=== PATIENT | female | born 1990 | race Caucasian/White ===

== ENCOUNTER 2017-04-09 10:38 | Inpatient (IN) | payer OTHER ==
[2017-04-09] MEDS ORDERED: SODIUM CHLORIDE 0.9% 50 ML 25 ML IV PRN (11:14)
[2017-04-09] MEDS ORDERED: AMPICILLIN 1 GM PDS 2 GM in SODIUM CHLORIDE 0.9% 100 ML 100 ML IV SCH (11:15)
[2017-04-09] MEDS ORDERED: MEPIVACAINE HCL 1% MPF 30 ML SOL INFIL PRN (11:22)
[2017-04-09] MEDS ORDERED: METHYLERGONOVINE MALEATE 0.2 MG/ML SOL IM PRN (11:22)
[2017-04-09] MEDS ORDERED: CARBOPROST 250 MCG/ML SOL IM PRN (11:22)
[2017-04-09] MEDS ORDERED: OXYTOCIN 10000 MU/ML SOL IM PRN (11:22)
[2017-04-09] MEDS ORDERED: FENTANYL 100MCG/2ML SOL IV PRN (11:22)
[2017-04-09] MEDS ORDERED: LACTATED RINGERS 1,000 ML IV PRN (11:22)
[2017-04-09] MEDS ORDERED: SODIUM CHLORIDE 0.9% FLUSH 10 ML SOL IV PRN (11:22)
[2017-04-09 11:55] LABS: BASOPHILS % (AUTO) 1 % (0-3); EOSINOPHILS % (AUTO) 4 % (0-9); HEMATOCRIT 35 % (35-47); MEAN CORPUSCULAR HGB CONC 33.4 gm/dl (32.0-36.0); MEAN CORPUSCULAR VOLUME 85 fL (81-99); MONOCYTES % (AUTO) 9.5 % (0-12); NEUTROPHILS % (AUTO) 72.7 % (37-80)
[2017-04-09] MEDS ORDERED: AMPICILLIN/SULBACTAM 3 GM PDS ONE ×2 (12:11→12:12)
[2017-04-09] MEDS ORDERED: AMPICILLIN 1 GM PDS ONE ×5 (12:13→23:15)
[2017-04-09] MEDS: SODIUM CHLORIDE 0.9% FLUSH 10 ML SOL IV SCH ×2 (12:24→19:53)
[2017-04-09] MEDS ORDERED: NALBUPHINE HCL 20 MG/ML SOL IV PRN ×2 (15:58→16:27)
[2017-04-09] MEDS ORDERED: NALOXONE HYDROCHLORIDE 0.4 MG/ML SOL IV PRN ×2 (15:58→16:27)
[2017-04-09] MEDS ORDERED: EPHEDRINE SULFATE 50 MG/ML SOL IV PRN ×2 (15:58→16:27)
[2017-04-09] MEDS ORDERED: DIPHENHYDRAMINE 50 MG/ML SOL IV PRN ×2 (15:58→16:27)
[2017-04-09] MEDS ORDERED: LACTATED RINGERS 1,000 ML IV SCH ×2 (16:00)
[2017-04-09] MEDS: AMPICILLIN 1 GM PDS 1 GM in SODIUM CHLORIDE 0.9% 100 ML 100 ML IV SCH ×3 (16:24→23:20)
[2017-04-09] MEDS ORDERED: ROPIVACAINE HYDROCHLORIDE 5 MG/ML SOL ONE (16:26)
[2017-04-09] MEDS ORDERED: FENTANYL 250 MCG/ 5ML SOL ONE (16:26)
[2017-04-09] MEDS ORDERED: LIDOCAINE HCL 2% MPF SOL ONE (16:26)
[2017-04-09] MEDS: LACTATED RINGERS 1,000 ML IV SCH ×3 (16:30→17:41)
[2017-04-09 23:24] LABS: BASOPHILS % (AUTO) 1 % (0-3); EOSINOPHILS % (AUTO) 1 % (0-9); HEMATOCRIT 34 % (35-47); MEAN CORPUSCULAR HGB CONC 34.7 gm/dl (32.0-36.0); MEAN CORPUSCULAR VOLUME 85 fL (81-99); MONOCYTES % (AUTO) 8.1 % (0-12); NEUTROPHILS % (AUTO) 83.6 % (37-80)
[2017-04-09] MEDS ORDERED: SODIUM CHLORIDE 0.9% 500 ML 500 ML IV ONE (23:30)
[2017-04-09 23:31] LABS: CALCIUM 8.3 mg/dl (8.5-10.1); POTASSIUM 3.8 mMol/L (3.5-5.1)
[2017-04-09] MEDS ORDERED: GENTAMICIN SULFATE 40 MG/ML SOL ONE (23:49)
[2017-04-10] MEDS: SODIUM CHLORIDE 0.9% IV SCH ×2
[2017-04-10] MEDS: GENTAMICIN SULFATE IV SCH ×2
[2017-04-10] MEDS ORDERED: BISACODYL 10 MG SUP PR PRN (01:57)
[2017-04-10] MEDS ORDERED: FLEET ENEMA PR PRN (01:57)
[2017-04-10] MEDS ORDERED: WITCH HAZEL 1 EA PAD TOP PRN (01:57)
[2017-04-10] MEDS ORDERED: METHYLERGONOVINE MALEATE 0.2 MG TAB PO PRN (01:57)
[2017-04-10] MEDS ORDERED: BENZOCAINE/MENTHOL 1 SPR TOP PRN (01:57)
[2017-04-10] MEDS: LACTATED RINGERS 1,000 ML IV SCH (02:24)
[2017-04-10] MEDS ORDERED: AMPICILLIN 1 GM PDS ONE (03:18)
[2017-04-10] MEDS: AMPICILLIN 1 GM PDS 1 GM in SODIUM CHLORIDE 0.9% 100 ML 100 ML IV SCH (03:25)
[2017-04-10] MEDS: SODIUM CHLORIDE 0.9% FLUSH 10 ML SOL IV SCH ×3 (03:37→21:53)
[2017-04-10] MEDS: IBUPROFEN 600 MG TAB PO PRN ×2 (04:01→11:31)
[2017-04-10] MEDS: APAP/HYDROCODONE 325/5 TAB PO PRN ×5 (04:01→21:52)
[2017-04-10] MEDS: DOCUSATE SODIUM 100 MG SGL PO SCH ×2 (08:37→21:52)
[2017-04-10] MEDS ORDERED: SODIUM CHLORIDE 0.9% IV SCH ×3 (09:00→22:00)
[2017-04-10] MEDS ORDERED: GENTAMICIN SULFATE IV SCH ×3 (09:00→22:00)
[2017-04-10] MEDS ORDERED: GENTAMICIN SULFATE 40 MG/ML SOL ONE ×2 (20:11→20:12)
[2017-04-10] MEDS ORDERED: SERTRALINE HYDROCHLORIDE 50 MG TAB ONE (20:13)
[2017-04-10] MEDS: SERTRALINE HYDROCHLORIDE 50 MG TAB PO SCH (21:53)
[2017-04-11] MEDS: APAP/HYDROCODONE 325/5 TAB PO PRN ×5 (02:27→22:48)
[2017-04-11] MEDS: SODIUM CHLORIDE 0.9% FLUSH 10 ML SOL IV SCH ×2 (02:34→12:40)
[2017-04-11] MEDS: IBUPROFEN 600 MG TAB PO PRN ×3 (06:25→18:56)
[2017-04-11] MEDS: DOCUSATE SODIUM 100 MG SGL PO SCH ×2 (08:38→21:37)
[2017-04-11] MEDS: MULTIVITAMIN2 1 EA TAB PO SCH (08:38)
[2017-04-11] MEDS: FOLIC ACID 1 MG TAB PO SCH (08:38)
[2017-04-11] MEDS ORDERED: TEMAZEPAM 15MG 15 MG CAP ONE (21:33)
[2017-04-11] MEDS ORDERED: SERTRALINE HYDROCHLORIDE 50 MG TAB ONE (21:33)
[2017-04-11] MEDS: SERTRALINE HYDROCHLORIDE 50 MG TAB PO SCH (21:37)
[2017-04-11] MEDS: TEMAZEPAM 15MG 15 MG CAP PO PRN (21:38)
[2017-04-12] MEDS ORDERED: TEMAZEPAM 15MG 15 MG CAP ONE (01:32)
[2017-04-12] MEDS: TEMAZEPAM 15MG 15 MG CAP PO PRN (01:33)
[2017-04-12] MEDS: IBUPROFEN 600 MG TAB PO PRN ×3 (01:33→16:51)
[2017-04-12 01:47] VITALS: RESP 18
[2017-04-12] MEDS: APAP/HYDROCODONE 325/5 TAB PO PRN ×3 (07:51→16:52)
[2017-04-12] MEDS: DOCUSATE SODIUM 100 MG SGL PO SCH ×2 (07:52→09:44)
[2017-04-12] MEDS: MULTIVITAMIN2 1 EA TAB PO SCH ×2 (07:52→09:45)
[2017-04-12] MEDS: FOLIC ACID 1 MG TAB PO SCH ×2 (07:52→09:44)
[2017-04-12 13:56] VITALS: BP 106/71; PULSE 76; TEMP 97; O2SAT 96
== END 2017-04-12 17:20 | disposition home or self-care (01) | DRG 774 ==
LOC: OBSVTOIN 10:38 → OB 10:38
PROVIDERS: ADMIT Family Medicine; ATTEND Family Medicine
PROC: 10E0XZZ Delivery of Products of Conception, External Approach (ICD-10-PCS; principal; 2017-04-10)
PROC: 0DQR0ZZ Repair Anal Sphincter, Open Approach (ICD-10-PCS; 2017-04-10)
PROC: 0DQP0ZZ Repair Rectum, Open Approach (ICD-10-PCS; 2017-04-10)
PROC: 0WQN0ZZ Repair Female Perineum, Open Approach (ICD-10-PCS; 2017-04-10)
PROC: 0UQGXZZ Repair Vagina, External Approach (ICD-10-PCS; 2017-04-10)
PROC: 10S0XZZ Reposition Products of Conception, External Approach (ICD-10-PCS; 2017-04-10)
DX: O41.1230 Chorioamnionitis, third trimester, not applicable or unspecified (principal); O99.42 Diseases of the circulatory system complicating childbirth; O70.3 Fourth degree perineal laceration during delivery; O76 Abnormality in fetal heart rate and rhythm complicating labor and delivery; Z3A.38 38 weeks gestation of pregnancy; Z37.0 Single live birth; O99.824 Streptococcus B carrier state complicating childbirth; O66.0 Obstructed labor due to shoulder dystocia; R00.0 Tachycardia, unspecified
CPT/HCPCS: 36415; 59025; 80048; 84112; 85018; 85025; 94762; 99070; J0290; J0295; J0670; J1580; J2590; J2795; J3010